=== PATIENT | male | born 1950 | race Caucasian/White ===

== ENCOUNTER 2016-10-18 13:06 | Emergency (ER) | payer MEDICAID ==
[2016-10-18 14:01] VITALS: BP 142/76
== END 2016-10-18 14:02 | disposition home or self-care (01) ==
LOC: ED 13:06
DX: S01.81XA Laceration without foreign body of other part of head, initial encounter (principal); Y00.XXXA Assault by blunt object, initial encounter; Y92.128 Other place in nursing home as the place of occurrence of the external cause